=== PATIENT | female | born 1975 | race African-American/Black ===

== ENCOUNTER 2019-01-15 20:04 | Inpatient (IN) ==
[2019-01-15] MEDS ORDERED: DUONEB (A & A) INH ONE ×2 (22:03)
[2019-01-15] MEDS ORDERED: SOLU-MEDROL IV ONE (22:04)
[2019-01-15] MEDS ORDERED: BENADRYL IV ONE (22:05)
[2019-01-15] MEDS ORDERED: MAGNESIUM SULFATE 1 GM/D5W 1 GM/100 ML IVPB IV ONE (22:06)
[2019-01-15 22:17] LABS: BLOOD TYPE ARTERIAL; SAMPLE BLOOD
[2019-01-15 22:18] LABS: BE 0.3 mmoll (-3.0-3.0); HCO3-(ACT) 25.1 mmoll (20.0-26.0); O2(CT) 13.4 mL/dL (15.0-23.0); O2HB 92.8 % (95.0-99.0); PCO2(98.6) 42 mmHg (35-45); PO2(98.6) 66 mmHg (60-100); THB 10.2 g/dL (11.5-17.4); pH(98.6) 7.39 (7.35-7.45)
[2019-01-15 22:19] LABS: MODALITY ROOM AIR
[2019-01-15 22:20] LABS: ALLEN TEST NO
--- NOTE | 2019-01-15 22:26 | PROVIDER DOCUMENTATION ---
This chart was entered by Aisha Delaney Scribe, acting as scribe for Cisco Zhou MD. HPI-Respiratory General - General Chief Complaint: Shortness of Breath Stated Complaint: RASH Time Seen by Provider: 01/15/19 21:57 Source: patient Allergies/Adverse Reactions: Patient Allergies Allergy/AdvReac Type Severity Reaction Status Date / Time No Known Allergies Allergy Verified 04/13/18 08:26 Home Medications: Home Medication List Medication Instructions Recorded Confirmed Last Taken Type Albuterol Sulfate Inhaler 2 puff INH Q6H PRN PRN #2 inhaler 01/19/18 01/15/19 04/13/18 Rx [Ventolin Hfa] - History of Present Illness-Resp Nature of Presenting Problem: 43 y/o female presents to ED with SOB and fever onset this morning. Pt reports she has hx asthma and has used her inhaler/nebulizer treatments without relief. Pt states she has a diffuse rash. Pt is alert and oriented. Quality of Pain: reports: none Severity in ED: reports: mild Onset/Duration: reports: this morning Timing: reports: still present Context: reports: other (hx asthma) Exposure: reports: other (hx asthma) Cough Quality/Degree: reports: no cough Episode Frequency: frequent episodes (hx asthma) Current Respiratory Medication Therapy: Initiated see nurses note Modifying Factors: improves with: nothing Associated Symptoms: reports: fever/chills, shortness of breath, short of breath , other (rash) Similar Symptoms Previously?: Yes (hx asthma) Recently seen or treated by another doctor?: No Review of Systems - Adult - REVIEW OF SYSTEMS - ADULT Constitutional: reports: fever. denies: chills Eyes: reports: no symptoms reported Ears, Nose, Mouth & Throat: reports: no symptoms reported Cardiovascular: denies: chest pain, palpitations Respiratory: reports: shortness of breath. denies: cough Gastrointestinal: denies: abdominal pain, diarrhea, nausea, vomiting Genitourinary: reports: no symptoms reported Musculoskeletal: denies: back pain, joint pain Integumentary: reports: itching, rash Neurological: denies: dizziness/vertigo, seizure Psychiatric: reports: no symptoms reported Endocrine: reports: no symptoms reported Hematologic/Lymphatic: reports: no symptoms reported Allergic/Immunologic: reports: no symptoms reported All Other Systems: Reviewed and Negative Past History - Adult - PAST MEDICAL HISTORY-ADULT Review of Records: reports: Old Records Reviewed, Nursing Assessment Review, Medications Reviewed Major Childhood Illnesses: reports: denies history Cardiovascular: reports: HTN Respiratory: reports: asthma Gastrointestinal: reports: denies history Obstetrical/Gynecological: reports: denies history Genitourinary: reports: denies history Musculoskeletal: reports: denies history Neurological: reports: denies history Endocrine/Immune: reports: denies history Other Conditions: reports: denies history - PRIOR SURGERIES/PROCEDURES Surgical/Procedure History: reports: none - PRIOR HOSPITALIZATIONS Prior Hospitalizations: reports: none - IMMUNIZATION STATUS Childhood Immunizations: See Nurse Assessment Flu Vaccine: See Nurse Assessment - FAMILY HISTORY Family History: reviewed, not pertinent - SOCIAL HISTORY Smoking: non-smoker Substance Use: none/never Alcohol Use Frequency: never Living Situation: family Physical Exam-General - PHYSICAL EXAM-ADULT Initial Vital Signs Reviewed: Yes - CONSTITUTIONAL General Appearance: appears well, alert, moderate distress - EYES Eyes: PERRL/EOMI, pink conjunctivae - HEAD, EARS, NOSE, MOUTH & THROAT HENMT: normocephalic/atraumatic, moist mucous membranes, normal ENT inspection - NECK Neck: non-tender, full range of motion - RESPIRATORY Respiratory: chest non-tender, respiratory distress, accessory muscle use, wheezing - CARDIOVASCULAR Cardiovascular: normal peripheral pulses, regular rate, rhythm - GASTROINTESTINAL (ABDOMEN) Abdominal Exam: normal bowel sounds, non tender, soft - MUSCULOSKELETAL Back Exam: normal inspection, no CVA tenderness, no vertebral tenderness Extremity: normal range of motion, non-tender, normal gait - SKIN Integumentary: normal color, warm/dry, rash (diffuse eczema) - NEUROLOGIC Neurologic: grossly normal - PSYCHIATRIC Psych/Mental Status: normal mood/affect, normal thought content, normal thought process, oriented x 3 - HEART Score HEART Score: History: Slightly Suspicious HEART Score: ECG: Normal HEART Score: Age: < or = 45 Years HEART Score: Risk Factors for Atherosclerotic Disease: 1 or 2 Risk Factors HEART Score: Troponin: < or = Normal Limit Total HEART Score:: 1 Progress - PLAN OF CARE/RESULTS Progress/Plan/Lab Results: Vital Signs - 8 hr 01/15/19 20:15 01/15/19 22:11 01/15/19 22:18 Temperature 100.4 F H Pulse Rate 104 H 130 H 132 H Respiratory Rate 24 36 H 36 H Blood Pressure 189/116 O2 Sat by Pulse Oximetry 100 97 100 01/15/19 22:41 Temperature 99.6 F Pulse Rate 127 H Respiratory Rate 34 H Blood Pressure 169/110 O2 Sat by Pulse Oximetry 99 Laboratory Results - last 24 hr 01/15/19 01/15/19 01/15/19 22:05 22:29 22:29 WBC 4.35 L RBC 4.39 Hgb 9.9 L Hct 32.3 L MCV 73.6 L MCH 22.6 L MCHC 30.7 L RDW Std Deviation 19.9 H Plt Count 455 H MPV 9.3 Immature Gran % (Auto) 0.2 Neut % (Auto) 50.6 Lymph % (Auto) 27.1 [place] % (Auto) 6.4 Eos % (Auto) 15.2 H Baso % (Auto) 0.5 Immature Gran # (Auto) 0.01 Neut # (Auto) 2.20 Lymph # (Auto) 1.18 L [place] # (Auto) 0.28 Eos # (Auto) 0.66 Baso # (Auto) 0.02 Specimen Type ARTERIAL Sample Site L BRACHIAL pH 7.39 pCO2 42 pO2 66 HCO3 25.1 Base Excess 0.3 Oxyhemoglobin 92.8 L ABG O2 Sat (Calculated) 13.4 L ABG O2 Saturation 96.0 ABG Carboxyhemoglobin 2.30 ABG Methemoglobin 1.0 Jamil Test NO A-a O2 Difference 31.0 Total Hemoglobin 10.2 L Lactate 0.80 Blood Gas Modality ROOM AIR FiO2 % 21.0 Sodium Potassium Chloride Carbon Dioxide Anion Gap BUN Creatinine Estimated GFR/1.73 m2 BUN/Creatinine Ratio Glucose Calculated Osmolality Calcium Total Bilirubin AST ALT Alkaline Phosphatase Troponin T < 0.010 Rvz-[id number]-Icwxuquomnn Pept Total Protein Albumin Globulin Albumin/Globulin Ratio 01/15/19 01/15/19 22:29 22:29 WBC RBC Hgb Hct MCV MCH MCHC RDW Std Deviation Plt Count MPV Immature Gran % (Auto) Neut % (Auto) Lymph % (Auto) [place] % (Auto) Eos % (Auto) Baso % (Auto) Immature Gran # (Auto) Neut # (Auto) Lymph # (Auto) [place] # (Auto) Eos # (Auto) Baso # (Auto) Specimen Type Sample Site pH pCO2 pO2 HCO3 Base Excess Oxyhemoglobin ABG O2 Sat (Calculated) ABG O2 Saturation ABG Carboxyhemoglobin ABG Methemoglobin Jamil Test A-a O2 Difference Total Hemoglobin Lactate Blood Gas Modality FiO2 % Sodium 138 Potassium 4.3 Chloride 102 Carbon Dioxide 24 L Anion Gap 12 BUN 9 Creatinine 0.7 Estimated GFR/1.73 m2 > 60 BUN/Creatinine Ratio 13 Glucose 112 H Calculated Osmolality 275 Calcium 8.4 L Total Bilirubin 0.20 AST 23 ALT 19 Alkaline Phosphatase 76 Troponin T Ses-O-Guidpbixrkp Pept 53 Total Protein 7.9 Albumin 4.0 Globulin 4.0 Albumin/Globulin Ratio 1.0 Orders Category Date Time Status Cardiac Monitoring DIRECTED Care 01/15/19 22:04 Active CHEST-PORTABLE [RAD] Stat Exams 01/15/19 22:04 Taken ABG [RESP] Routine Lab 01/15/19 22:05 Completed BLOOD CULTURE [BLDCUL] Stat Lab 01/15/19 22:05 Ordered BNP [PRO B-NATRIURETIC PEPTIDE] Stat Lab 01/15/19 22:29 Completed CBC WITH ELECTRONIC DIFF [HEME] Stat Lab 01/15/19 22:29 Completed CMP [COMPREHENSIVE METABOLIC PANEL] [CHEM] Stat Lab 01/15/19 22:29 Completed TROPONIN T Stat Lab 01/15/19 22:29 Completed Albuterol 2.5MG/Ipratrop 0.5MG [Duoneb (A & A)] Med 01/15/19 22:03 Discontinued 3 ml INH NOW ONE Albuterol 2.5MG/Ipratrop 0.5MG [Duoneb (A & A)] Med 01/15/19 22:03 Discontinued 3 ml INH NOW ONE Diphenhydramine [Benadryl] Med 01/15/19 22:05 Discontinued 50 mg IV NOW ONE Magnesium Sulfate 1 gm/D5w Med 01/15/19 22:06 Discontinued 1 gm in 100 ml IV NOW Methylprednisolone Sod Succ [Solu-Medrol] Med 01/15/19 22:04 Discontinued 125 mg IV NOW ONE Rocephin 1 gm/Ns IV Now Med 01/15/19 23:47 Ordered CefTRIAXONE [Rocephin] 1 gm 0.9% Sodium Chloride Inj [Ns] 50 ml IV NOW Aerosol Treatments Routine Oth 01/15/19 22:03 Completed Aerosol Treatments Routine Oth 01/15/19 22:03 Completed Aerosol Treatments Stat Oth 01/15/19 22:03 Completed Aerosol Treatments Stat Oth 01/15/19 22:03 Completed Oxygen Device Stat Oth 01/15/19 22:07 Completed Pulse Oximetry Stat Oth 01/15/19 22:04 Completed EKG [EKG] Stat Ther 01/15/19 22:09 Draft Result Diagrams: 01/15/19 22:29 01/15/19 22:29 - REASSESSMENT Reassessment #1 Time Reassessed: 23:50 Status: improving Reassessment Comment: decreased heart rate, decreased wheezes - EKG 1 Time of EKG reading by physician:: 22:10 EKG Read and Signed by:: Cisco Zhou EKG Interpretation (*Must complete 3 of following elements*): Abnormal Rate: 133 Rhythm: Sinus tach [place]: normal QRS: normal HI Interval: normal ST Wave: non-specific ST changes - XRAY 1 XRAY Study: Chest Impression: See EMR Report (NAD) - CONSULTS/PCP/HOSPITALIST Notification #1 *Consult/PCP/Hospitalist*: Dr. Trevizo Time Discussed: 23:55 Consult Disposition: Admit Departure - Departure Date of Disposition Decision: 01/15/19 Time of Disposition Decision: 23:54 DIAGNOSIS: Asthma exacerbation Qualifiers: Asthma severity: moderate Asthma persistence: unspecified Qualified Code(s): J45.901 - Unspecified asthma with (acute) exacerbation Eczema Qualifiers: Eczema type: unspecified Qualified Code(s): L30.9 - Dermatitis, unspecified Disposition: HOME 01 Certified Medical Emergency: Emergent Condition: Stable Referrals and Follow-Ups: None,PCP [Primary Care Provider] - - Critical Care Note This patient required my direct & personal management of CC.: No Attestation - Physician/ CASSANDRA Attestation Patient care was provided by Advanced Practice Provider:: No The physician spent face to face time with patient:: Yes Advanced Practice Provider documentation review:: Supervising physician onsite and consulted in the evaluation and care of this patient. The physician did have a face to face encounter with the patient. This chart was documented by the indicated scribe, (Aisha Delaney Scribe) and accurately reflects the services I performed and decisions made by , Cisco Zhou MD, as attested by the provider's signature.
[2019-01-15 22:50] LABS: BASO# 0.02 X1000 (0.0-0.2); BASO% 0.5 % (0.0-0.8); EOS# 0.66 X1000 (0.0-0.7); EOS% 15.2 % (0.0-10.0); HEMATOCRIT 32.3 % (37.0-47.0); HEMOGLOBIN 9.9 g/dL (12.0-16.0); IMM GRAN# 0.01 X1000 (0.0-0.04); IMM GRAN% 0.2 % (0.0-0.5); LYMPH# 1.18 X1000 (1.2-3.4); LYMPH% 27.1 % (20.5-51.1); MCH 22.6 PG (27-31); MCHC 30.7 g/dL (33-37); MCV 73.6 FL (81-99); MONO# 0.28 X1000 (0.11-0.59); MONO% 6.4 % (1.7-9.3); MPV 9.3 FL (7.4-10.4); NEUT% 50.6 % (42.2-75.2); PLT 455 X1000 (130-400); RBC 4.39 XMIL (4.2-5.4); RDW 19.9 % (11.5-14.5); WBC 4.35 X1000 (4.8-10.8)
[2019-01-15 23:07] LABS: AGAP 12; ALKALINE PHOSPHATASE 76 U/L (32-104); BUN 9 mg/dL (8-22); CALCIUM 8.4 mg/dL (8.8-10.2); CHLORIDE 102 mmol/L (98-107); COSMO 275; CREATININE 0.7 mg/dL (0.5-0.9); ESTIMATED GFR > 60; GLUCOSE 112 mg/dL (70-104); GOT 23 U/L (10-30); GPT 19 U/L (10-36); POTASSIUM 4.3 mmol/L (3.5-5.1); SODIUM 138 mmol/L (136-145); TCO2 24 mmol/L (25-35); TOTAL PROTEIN 7.9 g/dL (6.3-8.3)
--- NOTE | 2019-01-15 23:19 | EKG Report ---
Test Performed on : 01/15/2019 10:09:04 PM Test Reason : SOB Blood Pressure : / mmHG Vent. Rate : 133 BPM Atrial Rate : 133 BPM P-R Int : 138 ms QRS Dur : 070 ms QT Int : 288 ms P-R-T Axes : 068 071 076 degrees QTc Int : 428 ms Sinus tachycardia. Nonspecific ST abnormality Abnormal ECG When compared with ECG of 03-JUN-2016 08:35, Vent. rate has increased BY 46 BPM Non-specific change in ST segment in Lateral leads Unconfirmed Result
[2019-01-15] MEDS ORDERED: ROCEPHIN 1 GM in NS 50 ML IV ONE (23:47)
[2019-01-15] MEDS ORDERED: ZOFRAN IV PRN (23:54)
[2019-01-16] MEDS: DUONEB (A & A) INH SCH ×6 (03:06→23:55)
[2019-01-16] MEDS: SOLU-MEDROL IV SCH ×3 (04:25→17:42)
--- NOTE | 2019-01-16 05:44 | Diag Imaging Result Doc PS360 ---
EXAM: CHEST-PORTABLE HISTORY: sob TECHNIQUE: Chest single view COMPARISON: 10/30/2018 FINDINGS: The lungs are well expanded. The heart is not enlarged. The vessels are not distended. There are no infiltrates. No effusion identified. IMPRESSION: Negative exam. Electronically signed by Tremayne Eldridge 01/16/2019 5:42 AM
[2019-01-16 09:06] LABS: IRON SATURATION 5 %; TIBC 369 ug/dL; TOTAL IRON 19 ug/dL (49-151); UNBOUND IRON 350 ug/dL (112-346)
--- NOTE | 2019-01-16 12:28 | HISTORY AND PHYSICAL ---
PRIMARY CARE PROVIDER: None. CHIEF COMPLAINT: Shortness of breath. HISTORY OF PRESENT ILLNESS: Ms. Antonette Miguel is a 43-year-old female with a medical history of asthma and hypertension that she does not treat. She states that she has actually been out of her nebulizers and inhaler. Yesterday morning on her way back from [place], she started developing shortness of breath that progressively had gotten worse to the point she was having a difficult time with her breathing. She has complained of fever and nonproductive cough. Her voice is raspy. When she got here, ABGs were pretty much normal. Just mild hypoxia but that was on room air. PO2 of 66. Sat was 92%. She was given steroids and started her on scheduled steroids, albuterol, and Atrovent nebulizers and states she feels better. She did receive a one time dose of Rocephin, and she did have a fever of 100.4. We will go ahead and continue her Rocephin. PAST MEDICAL HISTORY: 1. Asthma and she states she only has an attack about once every 6 months. 2. Hypertension. 3. Eczema. 4. Iron deficiency anemia. PAST SURGICAL HISTORY: None. FAMILY HISTORY: No medical conditions in her mother or father, but her sister has cardiomyopathy, diabetes and hypertension. SOCIAL HISTORY: She lives alone. She has 2 adult girl's. She states that she started smoking Black and Mild's about 1 year ago, and she smokes anywhere from 1 to 2 per day. Only drinks alcohol on holidays like . No illicit drug use. She has been employed at [employer] for several years now. ALLERGIES: No known drug allergies. HOME MEDICATIONS: Albuterol inhaler 2 puffs q.6h hours as needed. REVIEW OF SYSTEMS: Fourteen point review of systems are complete, and all were negative except for those mentioned above in HPI. PHYSICAL EXAMINATION: VITAL SIGNS: Temperature 98.2 degrees, heart rate 85, respiratory rate 20, blood pressure 157/88, and O2 saturation 100% on 3 L nasal cannula. GENERAL: Ms. Antonette Miguel is a 43-year-old female. She is able to answer questions appropriately. She does have a raspy voice. HEENT: Atraumatic, normocephalic. Pupils equal, round, and reactive to light. Extraocular movements intact. Mucous membranes are moist. NECK: Trachea midline. CARDIOVASCULAR: S1, S2. Regular rate and rhythm. No rubs, gallops, or murmurs. No lower extremity edema. +2 dorsalis and radial pulses. Negative JVD or carotid bruits. PULMONARY: Inspiratory wheezes throughout. No accessory muscle use or work of breathing noted. Tolerating 3 L nasal cannula. GI: Soft, nontender, and nondistended. Positive bowel sounds x4. EXTREMITIES: Moves all extremities equally. Full range of motion. NEUROLOGIC: Alert and oriented x3. Follows commands. Sensory is intact. SKIN: Warm, dry, and intact. LABORATORY DATA: White blood cells 4000, hemoglobin 9, hematocrit 32, and platelet count 455,000. She has eosinophils of 15. ABGs on room air, pH 7.39, pCO2 42, PO2 66, base excess 0.3, saturation 92%. Lactate 0.8. Sodium 138, potassium 4.3, BUN 9, creatinine 0.9, glucose 112. Calcium 8.4, iron 19, total iron binding capacity 369, iron saturation 5%. Unsaturated iron binding 350. Ferritin pending. Total bilirubin 0.20. AST 23. ALT 19. Troponin less than 0.01. ProBNP 53. Albumin 4.0. Vitamin B12 409. IMAGING: Chest x-ray is negative. EKG sinus tachycardia with rate of 133, QTc was 428. ASSESSMENT/PLAN: 1. Acute asthma exacerbation. IV steroids. Antibiotic with Rocephin. She did have a fever and nebulizers. Oxygen as needed. 2. Hypertension. When she was discharged way back in 2016, she was put on hydralazine and lisinopril. She states that she does not have a primary so she has not been getting any antihypertensives. Her blood pressure here has been elevated 150s to 160s so she may add back some hydralazine 25 t.i.d. There was good possibility though she will not have the prescription filled when she leaves. 3. Iron deficiency anemia. We will start her on iron supplementation. Currently, she has got an iron level of 19 which is decently low. 4. Deep venous thrombosis prophylaxis. SCD's. Dictated by MINDY Lind for Grover Dye MD Addendum: Patient seen and examined by myself. Agree with MINDY note. It reflects my assessment and plan. Patient is being admitted to hospital for severe asthma exacerbation. She is not on any inhaled steroids, only on Albuterol. Will provide Duoneb q4 hrs scheduled as well as IV steroids. Will check ABG tomorrow and will monitor her closely. cc: MINDY Lind MD [facility]
[2019-01-16] MEDS: APRESOLINE PO SCH ×2 (13:47→21:44)
[2019-01-16] MEDS: ICAR-C PO SCH (13:48)
[2019-01-16 14:25] LABS: FERRITIN 9 ng/mL (13-150)
[2019-01-16] MEDS ORDERED: TYLENOL PO PRN (17:50)
[2019-01-16] MEDS ORDERED: ROCEPHIN 1 GM in NS 50 ML IV SCH (21:00)
[2019-01-17] MEDS: SOLU-MEDROL IV SCH ×2 (02:02→09:54)
[2019-01-17] MEDS: DUONEB (A & A) INH SCH ×3 (03:58→10:29)
[2019-01-17 07:36] VITALS: BP 144/89
[2019-01-17 07:59] LABS: AGAP 12; BUN 8 mg/dL (8-22); CALCIUM 8.7 mg/dL (8.8-10.2); CHLORIDE 105 mmol/L (98-107); COSMO 280; CREATININE 0.5 mg/dL (0.5-0.9); ESTIMATED GFR > 60; GLUCOSE 138 mg/dL (70-104); POTASSIUM 4.2 mmol/L (3.5-5.1); SODIUM 140 mmol/L (136-145); TCO2 23 mmol/L (25-35)
[2019-01-17 08:18] LABS: HEMATOCRIT 30.1 % (37.0-47.0); HEMOGLOBIN 9.1 g/dL (12.0-16.0); IMM GRAN# 0.04 X1000 (0.0-0.04); IMM GRAN% 0.3 % (0.0-0.5); LYMPH# 0.68 X1000 (1.2-3.4); LYMPH% 5.4 % (20.5-51.1); MCH 22.2 PG (27-31); MCHC 30.2 g/dL (33-37); MCV 73.6 FL (81-99); MONO% 2.4 % (1.7-9.3); MPV 9.4 FL (7.4-10.4); NEUT# 11.59 X1000 (1.4-6.5); NEUT% 91.9 % (42.2-75.2); PLT 488 X1000 (130-400); RBC 4.09 XMIL (4.2-5.4); RDW 19.7 % (11.5-14.5); WBC 12.61 X1000 (4.8-10.8)
[2019-01-17] MEDS: APRESOLINE PO SCH (09:54)
[2019-01-17] MEDS: ICAR-C PO SCH (09:54)
[2019-01-17 10:19] LABS: ANISOCYTOSIS 1+; EOS 1 % (1-10); LYMPHS 6 % (21-51); MONO 2 % (1-9); SEGS 91 % (42-75)
[2019-01-17] MEDS ORDERED: ELOCON CREAM TOP SCH (10:30)
--- NOTE | 2019-01-18 10:09 | DISCHARGE SUMMARY ---
ADMISSION DATE: 01/15/2019 DISCHARGE DATE: 01/17/2019 ADMISSION DIAGNOSES: 1. Acute asthma exacerbation. 2. Hypertension. 3. Iron deficiency anemia. DISCHARGE DIAGNOSES: 1. Acute asthma exacerbation, received IV steroids, antibiotics and nebulizers, and is going to go home on prednisone taper, budesonide and albuterol. 2. Hypertension. She is going to go home on lisinopril. 3. Iron-deficiency anemia. She will go home with some iron supplementation. CONSULTATIONS: None. SURGERIES AND PROCEDURES: None. HOSPITAL COURSE: Ms. Antonette Miguel is a 43-year-old female with a medical history of asthma and hypertension, but she apparently does not treat her hypertension at home, and states that she was actually out of nebulizers and her inhaler at home as well. The day before admission she was heading back from [place] and developed progressive shortness of breath, and she presented to the emergency department. She complained of fever and nonproductive cough. Her voice was raspy. ABGs were normal just a little bit of lower oxygenation. O2 saturation 92% on room air. She was started on steroids, antibiotics, and nebulizers. Also, she was started on antihypertensives due to the high blood pressure. Acute asthma exacerbation has resolved, and she is going to be discharged home. DISCHARGE VITAL SIGNS: Temperature 98.1 degrees, heart rate 77, respiratory rate 20, blood pressure 144/89, and O2 saturation 98% on 2 L nasal cannula. DISCHARGE LABORATORY DATA: White blood cells 12,000, hemoglobin 9, hematocrit 30, and platelet count 488,000. Sodium 140, potassium 4.2, BUN 8, creatinine 0.5, glucose 138, calcium 8.7, and iron level was 19. PERTINENT IMAGING: Chest x-ray is negative for any acute findings. She had an EKG with sinus tachycardia with rate of 133 and QTc 428. DISCHARGE MEDICATIONS: 1. Albuterol nebulizers inhaled every 4 hours. 2. Iron with ascorbic acid 1 tablet p.o. daily. 3. Prednisone taper. 4. Lisinopril 20 mg p.o. daily. 5. Budesonide inhaled twice a day. 6. Tylenol 650 p.o. every 6 hours p.r.n. DISCHARGE DIET: Heart healthy. DISCHARGE ACTIVITY: As tolerated. DISCHARGE PHYSICIAN FOLLOW UP: None. DISCHARGE INSTRUCTIONS: If her condition changes, contact her physician and/or return to the emergency department. Changes may include but are not limited to, shortness of breath, increased fatigue, excessive bleeding, unexplained weight loss or gain, unmanageable pain, signs or symptoms of infection. DISCHARGE DISPOSITION: Home. Dictated by MINDY Lind for Grover Dye MD Addendum: Patient seen and examined by myself. Agree with MINDY note. It reflects my assessment and plan. Patient is being discharged in stable condition. Will provide prescriptions for inhaled steroids and Albuterol as well. cc: MINDY Lind MD [facility]
== END 2019-01-17 13:10 | disposition home or self-care (01) | DRG 203 ==
LOC: P.ED 20:04 → P.MEDSURG 20:04 → OBSVTOIN 23:54
PROVIDERS: ATTEND Internal Medicine
CPT/HCPCS: 71010; 71045; 80048; 80053; 82607; 82728; 82746; 82805; 83540; 83550; 83880; 84484; 85025; 87040; 93005; 94640; 94761; 96365; 96367; 96375; 99285; A9270; J0696; J1200; J2920; J2930; J3475

== ENCOUNTER 2019-01-28 14:11 | Inpatient (IN) ==
--- NOTE | 2019-01-28 14:43 | PROVIDER DOCUMENTATION ---
HPI-General Adult - General Chief Complaint: Extremity Pain Stated Complaint: LEG PAIN Time Seen by Provider: 01/28/19 14:24 Source: patient Allergies/Adverse Reactions: Patient Allergies Allergy/AdvReac Type Severity Reaction Status Date / Time No Known Allergies Allergy Verified 01/28/19 14:43 Home Medications: Home Medication List Medication Instructions Recorded Confirmed Last Taken Type Albuterol Sulfate Inhaler 2 puff INH Q6H PRN PRN #2 inhaler 01/19/18 01/15/19 01/28/19 Rx [Ventolin Hfa] LISINOpril [Prinivil] 20 mg PO DAILY #90 tab 01/17/19 Unknown Rx - History of Present Illness -Gen Adult Nature of Presenting Problems: 43yof present to ER with c/o R leg swelling and pain x 2 weeks. Pt reports she recently went on a trip to [place] and the swelling started after. Pt reports also a hospital admission for 2 days. Denies blood thinners or hx of DVT. Pt currently has leg wrapped in siren wrap due to the weeping. Location of Pain/Injury: reports: lower extremity (R) Pain Radiation: reports: no radiation Quality of Pain: reports: aching, throbbing Onset/Duration: reports: other (2 week) Timing: reports: still present, getting worse Modifying Factors: improves with: rest. worse with: movement, palpation Associated Symptoms: denies: chest pain, dizziness, fever/chills, shortness of b reath, syncope, vomiting Review of Systems - Adult - REVIEW OF SYSTEMS - ADULT Constitutional: reports: no symptoms reported. denies: fever Eyes: reports: no symptoms reported Ears, Nose, Mouth & Throat: reports: no symptoms reported Cardiovascular: reports: no symptoms reported. denies: chest pain Respiratory: reports: no symptoms reported. denies: dyspnea on exertion, shortness of breath Gastrointestinal: reports: no symptoms reported. denies: nausea, vomiting Genitourinary: reports: no symptoms reported Musculoskeletal: reports: see HPI, other (R leg pain, swelling, and drainage) Integumentary: reports: no symptoms reported Neurological: reports: no symptoms reported. denies: dizziness/vertigo, syncope Psychiatric: reports: no symptoms reported Endocrine: reports: no symptoms reported Hematologic/Lymphatic: reports: no symptoms reported Allergic/Immunologic: reports: no symptoms reported All Other Systems: Reviewed and Negative Past History - Adult - PAST MEDICAL HISTORY-ADULT Review of Records: reports: Old Records Reviewed, Nursing Assessment Review, Med ications Reviewed, Social history reviewed & non-contributory. Major Childhood Illnesses: reports: denies history Cardiovascular: reports: HTN Respiratory: reports: asthma Gastrointestinal: reports: denies history Obstetrical/Gynecological: reports: denies history Genitourinary: reports: denies history Musculoskeletal: reports: denies history Neurological: reports: denies history Endocrine/Immune: reports: denies history Other Conditions: reports: denies history - PRIOR SURGERIES/PROCEDURES Surgical/Procedure History: reports: none - PRIOR HOSPITALIZATIONS Prior Hospitalizations: reports: none - IMMUNIZATION STATUS Childhood Immunizations: See Nurse Assessment Flu Vaccine: See Nurse Assessment - FAMILY HISTORY Family History: reviewed, not pertinent Physical Exam-General - PHYSICAL EXAM-ADULT Initial Vital Signs Reviewed: Yes - CONSTITUTIONAL General Appearance: appears well, alert, no apparent distress - EYES Eyes: pink conjunctivae - HEAD, EARS, NOSE, MOUTH & THROAT HENMT: moist mucous membranes - NECK Neck: full range of motion, supple, normal inspection - RESPIRATORY Respiratory: chest non-tender, lungs clear, normal breath sounds, no respiratory distress, no accessory muscle use - CARDIOVASCULAR Cardiovascular: tachycardia - GASTROINTESTINAL (ABDOMEN) Abdominal Exam: normal bowel sounds, non tender, soft - LYMPHATIC Lymphatic: no adenopathy - MUSCULOSKELETAL Back Exam: normal inspection Extremity: normal range of motion, normal capillary refill, calf tenderness, pedal edema, swelling, tenderness (to light palpation). negative: deformity Peripheral Pulses: dorsalis-pedis (R): 1+, dorsalis-pedis (L): 1+ - SKIN Integumentary: normal color, warm/dry, erythema (RLE), rash (dry flaky eczema- like rash to extremities). negative: blanching, diaphoresis, ecchymosis, jaundice, petechiae, zoster-like rash - NEUROLOGIC Neurologic: grossly normal - PSYCHIATRIC Psych/Mental Status: normal mood/affect, normal thought content, normal thought process, oriented x 3 Progress - PLAN OF CARE/RESULTS Progress/Plan/Lab Results: Vital Signs - 8 hr 01/28/19 14:20 Temperature 97.9 F Pulse Rate 103 H Respiratory Rate 18 Blood Pressure 174/87 O2 Sat by Pulse Oximetry 97 Orders Category Date Time Status CBC WITH DIFF [HEME] Stat Lab 01/28/19 14:29 Uncollected COMPREHENSIVE METABOLIC PANEL [CHEM] Stat Lab 01/28/19 14:29 Uncollected D-DIMER [COAG] Stat Lab 01/28/19 14:29 Uncollected US [Venous U/S Right Leg] Stat Ther 01/28/19 14:30 Ordered 1740- patient reports she went to [place] 2 weeks ago and the swelling and pain started. she came here on January 17 when she got back from [place] and got admitted for BP. she reports the pain and swelling was still in her legs. the weeping in her legs started a few days ago. Result Diagrams: 01/28/19 14:45 01/28/19 14:45 - REASSESSMENT Reassessment #1 Time Reassessed: 14:39 (Gila wrap removed by RN. clear/yellow drainage noted) Reassessment #2 Time Reassessed: 16:05 (Reviewed results thus far with pt, no new complaints) - CT/MRI 1 CT Study: other (pulmonary arteries) Impression: See EMR Report ( Signed CT ANGIOGRM PULMONARY ARTERIES - 01/28/2019 INDICATION: +d-dimer, leg swelling TECHNIQUE: Axial CT images were obtained after administering intravenous contrast. Coronal MIP images were generated. COMPARISON: None FINDINGS: There is no pulmonary embolism. Heart and great vessels are normal. Upper abdominal images are normal. The lungs and airways are clear. Bony structures are intact. IMPRESSION: Negative exam. This exam was performed using automated exposure control, adjustment of mA or kV according to patient size, and/or use of iterative reconstruction technique Electronically signed by Jake Jon 01/28/2019 5:25 PM 01/28/19 1725 Interpreting Physician: Jake Jon MD Dictated Date/Time: 01/28/19 172 cc: Louis Gottlieb; None,PCP) - ULTRASOUND (By Radiology) 1 US Study: Lower Ext Impression: See EMR Report (FINDINGS: The deep veins of the right lower extremity demonstrate appropriate compressibility and augmentation. No intraluminal thrombus is visualized. There is no evidence for DVT. The superficial veins appear patent. IMPRESSION: No evidence for deep venous thrombosis right lower extremity.) - CONSULTS/PCP/HOSPITALIST Notification #1 *Consult/PCP/Hospitalist*: Dr. Dyer Time Discussed: 17:44 Reason/Comments: admit for cellulitis Consult Disposition: Will see in ED, Admit - CHANGE OF SHIFT REPORT (ED Provider) 1 Report Given and Care Transferred to:: MINDY Vaughn Time of Transfer: 18:00 Items Pending: CT/MRI Results Departure - Departure Date of Disposition Decision: 01/28/19 Time of Disposition Decision: 17:40 DIAGNOSIS: Cellulitis Qualifiers: Site of cellulitis: unspecified site Qualified Code(s): L03.90 - Cellulitis, unspecified Disposition: ADMITTED INPATIENT 09 Certified Medical Emergency: Emergent Condition: Stable Referrals and Follow-Ups: None,PCP [Primary Care Provider] - - Critical Care Note This patient required my direct & personal management of CC.: No Attestation - Physician/ CASSANDRA Attestation Patient care was provided by Advanced Practice Provider:: Yes Advanced Practice Provider:: Zaida Adams Advanced Practice Provider documentation review:: The Mid-level provider documentation, treatment plan and medical decision making was reviewed by the physician who agrees with all treatment and medical decision making by the MLP. The physician spent face to face time with patient:: No Advanced Practice Provider documentation review:: Supervising physician onsite a nd consulted in the evaluation and care of this patient. The physician did not have a face to face encounter with the patient.
[2019-01-28 15:02] LABS: BASO# 0.01 X1000 (0.0-0.2); BASO% 0.1 % (0.0-0.8); HEMATOCRIT 30.7 % (37.0-47.0); HEMOGLOBIN 9.5 g/dL (12.0-16.0); IMM GRAN# 0.07 X1000 (0.0-0.04); IMM GRAN% 0.7 % (0.0-0.5); LYMPH# 1.13 X1000 (1.2-3.4); LYMPH% 11.3 % (20.5-51.1); MCH 23.3 PG (27-31); MCHC 30.9 g/dL (33-37); MCV 75.2 FL (81-99); MONO# 0.55 X1000 (0.11-0.59); MONO% 5.5 % (1.7-9.3); MPV 9.1 FL (7.4-10.4); NEUT# 7.67 X1000 (1.4-6.5); NEUT% 76.4 % (42.2-75.2); PLT 551 X1000 (130-400); RBC 4.08 XMIL (4.2-5.4); RDW 21.9 % (11.5-14.5); WBC 10.03 X1000 (4.8-10.8)
[2019-01-28 15:21] LABS: AGAP 12; ALBUMIN 3.8 g/dL (3.5-5.0); ALKALINE PHOSPHATASE 70 U/L (32-104); BUN 13 mg/dL (8-22); CALCIUM 8.4 mg/dL (8.8-10.2); CHLORIDE 108 mmol/L (98-107); COSMO 285; CREATININE 0.9 mg/dL (0.5-0.9); ESTIMATED GFR > 60; GLUCOSE 98 mg/dL (70-104); GOT 23 U/L (10-30); GPT 18 U/L (10-36); POTASSIUM 4.2 mmol/L (3.5-5.1); SODIUM 143 mmol/L (136-145); TCO2 23 mmol/L (25-35); TOTAL PROTEIN 7.3 g/dL (6.3-8.3)
[2019-01-28 15:43] LABS: INR 0.88; PROTIME 12.4 Seconds (11.0-16.0)
[2019-01-28 15:44] LABS: PTT 29.6 Seconds (22.3-41.8)
--- NOTE | 2019-01-28 15:57 | Extremity Venous Study ---
EXAM: Venous U/S Right Leg HISTORY: leg pain, swelling TECHNIQUE: Briceño scale, color Doppler, and duplex evaluation was performed. COMPARISON: None. FINDINGS: The deep veins of the right lower extremity demonstrate appropriate compressibility and augmentation. No intraluminal thrombus is visualized. There is no evidence for DVT. The superficial veins appear patent. IMPRESSION: No evidence for deep venous thrombosis right lower extremity. Electronically signed by Ana Laura Pineda 01/28/2019 3:55 PM
[2019-01-28] MEDS ORDERED: NS 1,000 ML IV ONE (16:07)
--- NOTE | 2019-01-28 17:27 | Diag Imaging Result Doc PS360 ---
CT ANGIOGRM PULMONARY ARTERIES - 01/28/2019 INDICATION: +d-dimer, leg swelling TECHNIQUE: Axial CT images were obtained after administering intravenous contrast. Coronal MIP images were generated. COMPARISON: None FINDINGS: There is no pulmonary embolism. Heart and great vessels are normal. Upper abdominal images are normal. The lungs and airways are clear. Bony structures are intact. IMPRESSION: Negative exam. This exam was performed using automated exposure control, adjustment of mA or kV according to patient size, and/or use of iterative reconstruction technique Electronically signed by Jake Jon 01/28/2019 5:25 PM
[2019-01-28] MEDS ORDERED: ZOFRAN ODT PO PRN (17:50)
[2019-01-28] MEDS ORDERED: ZOFRAN IV PRN (17:50)
[2019-01-28] MEDS ORDERED: TYLENOL PO PRN (17:50)
[2019-01-28] MEDS ORDERED: NORCO-7.5 PO PRN (17:53)
[2019-01-28] MEDS: LASIX IV SCH (18:09)
[2019-01-28] MEDS: NS 1,000 ML IV SCH (18:10)
[2019-01-28] MEDS: ZOSYN 3.375 GM in NS 50 ML IV SCH ×2 (18:10→23:42)
[2019-01-28] MEDS ORDERED: APRESOLINE IV ONE (18:29)
[2019-01-28] MEDS ORDERED: APRESOLINE IV PRN (18:33)
--- NOTE | 2019-01-28 18:47 | HISTORY AND PHYSICAL ---
CHIEF COMPLAINT: Pain and swelling in bilateral lower extremities. HISTORY OF PRESENT ILLNESS: The patient is a 43-year-old female who presented to the ER her legs have been aching and hurting all day. They have been swelling and weeping. Denies any previous history of such. However, notes she recently took a trip to [place] and since then her legs have been increasingly swelling more and more. She had an ultrasound in the ER that was negative for DVT. She had a CTA that was negative for pulmonary emboli, although her D-dimer is elevated at 1.1. The patient presented to the ER with her leg wrapped in Saran Wrap to keep the weeping at a minimum while she was at work. ALLERGIES: No known drug allergies. MEDICATIONS: Albuterol, lisinopril. REVIEW OF SYSTEMS: The patient notes that her legs are continuing to get worse. The edema has now become weeping edema. She has sores on the legs. They hurt, ache all the time, throbbing, difficulty staying at work. Denies any chest pain, palpitations. Denies any PND or orthopnea. Denies any history of congestive heart failure. Denies any coronary disease. Denies any fevers, chills, cough, congestion, dysuria, frequency, urgency. Denies hesitancy, polyuria, or polydipsia. PAST MEDICAL HISTORY: Significant for asthma and hypertension. FAMILY HISTORY: Noncontributory. SOCIAL HISTORY: Patient denies alcohol or illicit drug use. She is employed. PHYSICAL EXAMINATION: VITAL SIGNS: Reviewed. Temp 97 degrees, pulse 103, respiratory rate 18, BP 174/87, saturation 97% on room air. GENERAL: Patient is awake, currently in no respiratory distress but she is obviously in pain. HEENT: Normocephalic. NECK: Supple. CARDIOVASCULAR: Regular rate. CHEST: Clear, nonlabored. ABDOMEN: Soft, nondistended. EXTREMITIES: Moves all extremities. She does have 2+ edema in bilateral lower extremities with weeping edema. SKIN: She has an excoriated rash on her bilateral lower extremities. It is dry and flaky. NEUROLOGIC: No focal changes. ASSESSMENT: 1. Elevated D-dimer with negative ultrasound and negative CTA. 2. Bilateral lower extremity edema. 3. Eczema. 4. Hypertension. PLAN: We will admit the patient to the hospital, place her on antibiotics, Lasix, pain control. We will continue to follow. May consider steroids as well. Further orders as needed. cc: Josse Hathaway MD MTDD
[2019-01-29] MEDS: ZOSYN 3.375 GM in NS 50 ML IV SCH ×3 (05:10→17:56)
[2019-01-29] MEDS: LASIX IV SCH ×2 (05:11→17:56)
[2019-01-29 06:28] LABS: HEMATOCRIT 30.2 % (37.0-47.0); HEMOGLOBIN 9.3 g/dL (12.0-16.0); MCH 23.1 PG (27-31); MCHC 30.8 g/dL (33-37); MCV 74.9 FL (81-99); MPV 9.3 FL (7.4-10.4); RBC 4.03 XMIL (4.2-5.4); WBC 9.63 X1000 (4.8-10.8)
[2019-01-29 06:43] LABS: AGAP 12; ALBUMIN 3.4 g/dL (3.5-5.0); ALKALINE PHOSPHATASE 66 U/L (32-104); BUN 8 mg/dL (8-22); CALCIUM 8.1 mg/dL (8.8-10.2); CHLORIDE 101 mmol/L (98-107); COSMO 275; CREATININE 0.8 mg/dL (0.5-0.9); ESTIMATED GFR > 60; GLUCOSE 119 mg/dL (70-104); GOT 14 U/L (10-30); GPT 14 U/L (10-36); MAGNESIUM 1.9 mg/dL (1.5-2.7); POTASSIUM 3.3 mmol/L (3.5-5.1); SODIUM 138 mmol/L (136-145); TCO2 25 mmol/L (25-35)
[2019-01-29] MEDS ORDERED: KLOR-CON PO ONE (06:56)
[2019-01-29] MEDS: NS 1,000 ML IV SCH ×2 (08:55→12:48)
[2019-01-29] MEDS: SOLU-MEDROL IV SCH ×2 (08:55→17:55)
--- NOTE | 2019-01-29 14:36 | ECHO REPORT ---
ORDER DATE: 01/29/2019 INDICATION: Edema. FINDINGS: 1. Right atrium appears normal in size. 2. Mild tricuspid regurgitation. RV systolic pressure of 54. 3. Normal RV size and systolic function. 4. No significant pulmonic insufficiency. 5. Mild left atrial enlargement with a left atrial volume index of 28. 6. No mitral prolapse. No significant mitral regurgitation identified. 7. Normal LV size, end-diastolic dimension of 4.4. Normal wall thicknesses with a posterior and interventricular septal wall thickness of 0.9 and 1.0 cm respectively. Normal LV systolic function. Estimated EF of 65% with normal wall motion. 8. Aortic valve opens well. It is trileaflet. No evidence of stenosis or insufficiency. 9. Aorta appears normal in visualized segments. 10. No pericardial effusion seen. 11. Injection of agitated saline contrast was performed with no evidence of significant shunting. cc: MD Josse Miner MD
--- NOTE | 2019-01-29 21:41 | PROGRESS NOTE ---
DATE: 01/29/2019 SUBJECTIVE: Patient notes she feels a lot better today than she did yesterday. She is still having pain and swelling in her legs, but notes this is improved. Denies any fevers or chills. OBJECTIVE: Temperature is 98.4 degrees, pulse 89, respiratory rate 18, BP 124/5.6 General: Patient is awake. She is in no current respiratory distress. HEENT: Normocephalic. Neck: Supple. Cardiovascular: Regular rate. Chest: Clear. Nonlabored. Abdomen: Soft, nondistended. Extremities: Moves all extremities. Still has edema of bilateral lower extremities with weeping sores. ASSESSMENT: 1. Eczema. The patient has a known chronic history of eczema. In fact, she has eczematous lesions on both arms as well. We are going to place her on steroids to see if this will help. 2. Elevated D-dimer with negative workup. 3. Bilateral lower extremity edema. 4. Hypertension. PLAN: We will continue patient in the hospital. Continue Lasix, Solu-Medrol, and will follow. Hopefully, home over the next day or two. cc: Josse Hathaway MD
[2019-01-30] MEDS: SOLU-MEDROL IV SCH ×3 (00:06→17:12)
[2019-01-30] MEDS: ZOSYN 3.375 GM in NS 50 ML IV SCH ×3 (00:06→12:44)
[2019-01-30] MEDS ORDERED: PRINIVIL PO SCH (09:00)
[2019-01-30 13:51] VITALS: BP 156/89
--- NOTE | 2019-01-30 17:13 | DISCHARGE SUMMARY ---
ADMISSION DATE: 01/28/2019 DISCHARGE DATE: 01/30/2019 PRIMARY CARE PHYSICIAN: None. ADMISSION DIAGNOSES: 1. Elevated D-dimer with negative ultrasound, negative CTA. 2. Bilateral lower extremity edema. 3. Eczema. 4. Hypertension. DISCHARGE DIAGNOSES: 1. Elevated D-dimer with negative ultrasound, negative CTA. 2. Bilateral lower extremity edema. 3. Eczema. 4. Hypertension. SUMMARY OF FINDINGS: This is a 43-year-old female who presented to the ER with complaints of her legs aching and hurting, had been swelling and weeping. She notes that she recently took a trip to [place] and the legs had been increasingly swelling more and more. She had an ultrasound in the ER that was negative for a DVT. She had a CTA that was negative for pulmonary emboli, although her D-dimer was elevated at 1.1. When she presented to the ER, her legs were wrapped in Saran wrap to keep the weeping at a minimum while she was at work. She was admitted to the hospital, placed on antibiotics, Lasix and had pain control. She was started on Solu-Medrol and weaned as she has improved. She is feeling much better. Still has some pain and swelling, but it is much improved to her bilateral lower extremities and it is now felt that she can safely be discharged home. We will send her home with a prescription for Medrol Dosepak to take as directed and she will continue her home medications of Prinivil 20 mg p.o. daily, Ventolin inhaler 2 puffs q.6 hours p.r.n. FOLLOWUP: She needs to obtain a primary care physician, which she states she had been working on and will complete this process and follow up with them in the next 1 to 2 weeks. All discharge instructions have been reviewed and she verbalized understanding. TIME SPENT: Thirty-five minute discharge. Dictated by MINDY Benson for Josse Hathaway MD cc: MINDY Benson MD
--- NOTE | 2019-01-30 20:48 | DISCHARGE SUMMARY ---
ADMISSION DATE: 01/28/2019 DISCHARGE DATE: 01/30/2019 Patient seen and examined by myself. Full note dictated and discussed with nurse practitioner. The patient has a severe eczematous reaction on the bilateral lower extremities. This has improved greatly with steroids over the past few days. I did not feel as though this was infection at this point, but is eczema and weeping sores. We are going to continue steroids at home. Certainly, she would benefit from Eucrisa. We are going to start this prescription as well. Further orders as needed. She is going to follow up outpatient with her primary care. cc: Josse Hathaway MD
== END 2019-01-30 17:50 | disposition home or self-care (01) | DRG 607 ==
LOC: P.ED 14:11 → P.MEDSURG 18:33
PROVIDERS: ATTEND Family Medicine